=== PATIENT | female | born 1975 | race American Indian/Alaskan Native ===

== ENCOUNTER 2016-08-26 08:13 | Outpatient (RCR) | payer BC | END 2016-11-24 | disposition home or self-care (01) | LOC: CARD 08:13 | PROVIDERS: ATTEND Nurse Practitioner | DX: R00.1 Bradycardia, unspecified (principal); R00.0 Tachycardia, unspecified; R42 Dizziness and giddiness | CPT/HCPCS: 93225; 93226 ==